=== PATIENT | female | born 1970 | race American Indian/Alaskan Native ===

== ENCOUNTER 2018-01-04 10:14 | Emergency (ER) | payer OTHER ==
--- NOTE | 2018-01-04 15:58 | Emergency Department Report ---
Minor Respiratory - HPI Chief Complaint: Dental/Oral Stated Complaint: FACIAL PAIN Time Seen by Provider: 01/04/18 15:33 Duration: 2 weeks Pain Location: Facial Severity: moderate (4/10 and achy) Minor Respiratory: Yes Able to Tolerate Fluids, Yes Cough (cough worse at night when lying down), No Rhinorrhea (PND, Nasal congestion and runny nose), No Sore Throat, No Ear Pain (clogged ear sensation), No Sick Contacts, No Hemoptysis, No Chest Pain, No Shortness of Breath, No Fever Other History: he reports that she's been having facial pain and states that she has shooting pain from the top of her nose radiating down around her chin. She says she has been rubbing around her nose frequently because of pain and she is a little pimple at the site. This is to her left facial area. She reports nasal congestion and runny nose, postnasal drainage that is worse at night. She said when she lays down at night she coughs and her cough is dry. Denies any chest pain or shortness of breath. Denies any fever or chills. She denies any headache. She says she's also been having a toothache and she went to the dentist and he evaluated her yesterday and told her that her pain is not related to her teeth. She says she's been taking Mucinex [id number] does not help him. ED Review of Systems ROS: Stated complaint: FACIAL PAIN Other details as noted in HPI Constitutional: denies: chills, fever Eyes: denies: eye pain, eye discharge, vision change ENT: congestion (runny nose and clogged ear sensation), other (patient pain). denies: ear pain, throat pain, dental pain, hearing loss, epistaxis Respiratory: cough. denies: shortness of breath, SOB with exertion, SOB at rest , stridor, wheezing Cardiovascular: denies: chest pain, palpitations, syncope Endocrine: no symptoms reported Gastrointestinal: denies: nausea, vomiting Genitourinary: denies: urgency, dysuria Musculoskeletal: denies: back pain, joint swelling, arthralgia Skin: rash. denies: lesions, pruritus Neurological: denies: headache, weakness, abnormal gait, vertigo ED Past Medical Hx - Past Medical History Hx Hypertension: No Hx Congestive Heart Failure: No Hx Diabetes: No Hx GERD: Yes Hx Arthritis: Yes (KNEES) Hx Headaches / Migraines: Yes (MIGRAINES) Hx Seizures: Yes Hx Asthma: Yes Additional medical history: Chronic bronchitis. OBESITY - Surgical History Past Surgical History?: Yes Additional Surgical History: tubal, tubal reversal. Hysterectomy - Family History Family history: hypertension (patient is) - Social History Smoking Status: Never Smoker Substance Use Type: None Other Social History: She and works for [employer] Home Medications: Home Medications Medication Instructions Recorded Confirmed Last Taken Type Diclofenac EC [Voltaren] 75 mg PO BID 09/24/15 06/07/16 06/06/16 20:00 History Fluticasone/Vilanterol [Breo 1 unit INHALATION DAILY 09/24/15 05/29/16 11/30/15 19:00 History Ellipta 100-25 Mcg INH] Ferrous Sulfate [Feosol 325 MG tab] 325 mg PO BID 11/25/15 06/07/16 06/06/16 08: 00 History Magnesium Oxide [Magnesium] 400 mg PO DAILY 11/25/15 06/07/16 06/06/16 08:00 History Montelukast [Singulair] 10 mg PO PRN PRN 11/25/15 05/29/16 11/30/15 19:00 History Omeprazole [PriLOSEC] 40 mg PO DAILY 11/25/15 06/07/16 06/06/16 08:00 History Topiramate [Topamax] 25 mg PO BID 11/25/15 06/07/16 06/06/16 20:00 History ALBUTEROL Inhaler [ProAir HFA 1 puff INHALATION PRN PRN 05/29/16 06/07/16 Unknown History Inhaler] Lurasidone HCl [Latuda] 40 mg PO QDAY 05/29/16 06/07/16 06/06/16 08:00 History Amoxicillin/K Clav Tab [Augmentin 1 tab PO Q12HR 10 Days #20 tab 01/04/18 Unknown Rx 875 mg] Benzonatate [Tessalon Perles] 100 mg PO Q8HR PRN #12 capsule 01/04/18 Unknown Rx Cetirizine HCl [ZyrTEC] 10 mg PO QDAY 14 Days #14 capsule 01/04/18 Unknown Rx Fluticasone [Flonase] 1 spray NS QDAY 14 Days #1 bottle 01/04/18 Unknown Rx Ibuprofen [Motrin 800 MG tab] 800 mg PO Q8HR PRN #12 tablet 01/04/18 Unknown Rx Minor Respiratory Exam - Exam General: Vital signs noted. No distress. Alert and acting appropriately. This is a 47-year-old female well-nourished well-developed in no acute distress. HEENT: Yes Moist Mucous Membranes, Yes Rhinorrhea (nasal congestion with erythema.), Yes Maxillary Tenderness (bilaterally), No Pharyngeal Erythema ( uvula midline and oral airways patent), No Pharyngeal Exudates, No Conjuctival Injection, No Frontal Tenderness Ear: Neither TM Bulge (congested without erythema), Neither TM Erythema, Neither EAC Pain, Neither EAC Discharge Neck: Yes Supple (full range of motion and no C-spine tenderness), No Adenopathy Lungs: Yes Good Air Exchange (CTAB), Yes Cough (dry), No Wheezes, No Ronchi, No Stridor, No Labored Respirations, No Retractions, No Use of Accessory Muscles, No Other Abnormal Lung Sounds Heart: Yes Regular (S1 S2 RRR), No Murmur Abdomen: Yes Normal Bowel Sounds (in all quadrants), No Tenderness (Soft, NTTP in all quadrants), No Peritoneal Signs Skin: No Rash, No Edema Neurologic: Alert and oriented 3, normal gait Musculoskeletal: Unremarkable. Extremity: No clubbing, cyanosis or edema. Positive pulses all extremities and no neurovascular compromise. ED Course Vital Signs 01/04/18 10:20 Temperature 98.5 F Pulse Rate 81 Respiratory 16 Rate Blood Pressure 133/78 O2 Sat by Pulse 98 Oximetry - Reevaluation(s) Reevaluation #1: 01/04/18 17:44 Patient stable throughout ED course and did not need anything for pain while in the emergency room. ED Medical Decision Making - Medical Decision Making ED course: PT her complaining of facial pain mostly on left maxillary facial sinus area. She says she's been rubbing the area developed. The site. Patient found to have acute sinusitis with small pustule to left maxillary area. She has tenderness to palpate to bilateral maxillary sinus. Bilateral TM congested without erythema. She went to the dentist yesterday and he told her that her teeth were fine. She was thinking that it was because she was having teeth problem. Patient says she took some Mucinex but it didn't help her. Patient is stable and she did not want anything for pain emergency room and I discussed her discharge diagnoses and treatment plan. She is in agreement. Patient discharged home in stable condition with prescription for Zyrtec, Flonase, Augmentin, motrin , prednisone and Tessalon Perle for sinusitis , cough and pustule. Critical care attestation.: If time is entered above; I have spent that time in minutes in the direct care of this critically ill patient, excluding procedure time. ED Disposition Clinical Impression: Cough in adult, Skin pustule Sinusitis, acute Qualifiers: Sinusitis location: maxillary Recurrence: not specified as recurrent Qualified Code(s): J01.00 - Acute maxillary sinusitis, unspecified Disposition: DC- TO HOME OR SELFCARE Is pt being admited?: No Does the pt Need Aspirin: No Condition: Stable Instructions: Sinusitis (ED), Cellulitis (ED), Acute Cough (ED) Additional Instructions: Please increase her fluid intake Flush nostrils with saline nasal spray take antibiotic as prescribed F/U with primary care physician as instructed Prescriptions: Amoxicillin/K Clav Tab [Augmentin 875 mg] 1 tab PO Q12HR 10 Days #20 tab Benzonatate [Tessalon Perles] 100 mg PO Q8HR PRN #12 capsule PRN Reason: cough Cetirizine HCl [ZyrTEC] 10 mg PO QDAY 14 Days #14 capsule Fluticasone [Flonase] 1 spray NS QDAY 14 Days #1 bottle Ibuprofen [Motrin 800 MG tab] 800 mg PO Q8HR PRN #12 tablet PRN Reason: Pain Referrals: AURORA HAYS MD [Primary Care Provider] - 2-3 Days Forms: Work/School Release Form(ED)
[2018-01-04 17:46] VITALS: BP 163/98
== END 2018-01-04 18:03 | disposition home or self-care (01) ==
LOC: ED 10:14
DX: J01.00 Acute maxillary sinusitis, unspecified (principal); L08.9 Local infection of the skin and subcutaneous tissue, unspecified; K21.9 Gastro-esophageal reflux disease without esophagitis; J45.909 Unspecified asthma, uncomplicated
CPT/HCPCS: 99281

== ENCOUNTER 2020-02-02 09:28 | Emergency (ER) | payer OTHER ==
[2020-02-02 09:34] VITALS: BP 139/78
== END 2020-02-02 10:56 | disposition home or self-care (01) ==
LOC: ED 09:28
DX: R51 Headache (principal); K21.9 Gastro-esophageal reflux disease without esophagitis; M17.0 Bilateral primary osteoarthritis of knee; R56.9 Unspecified convulsions; J45.909 Unspecified asthma, uncomplicated; Z98.890 Other specified postprocedural states; Z90.710 Acquired absence of both cervix and uterus; Z79.1 Long term (current) use of non-steroidal anti-inflammatories (NSAID); Z79.2 Long term (current) use of antibiotics; Z79.899 Other long term (current) drug therapy
CPT/HCPCS: 99281